=== PATIENT | female | born 1975 | race Caucasian/White ===

== ENCOUNTER → 2016-11-26 | Outpatient (CLI) | payer BC ==
[2011-01-19 10:22] VITALS: BP 107/70
[2016-11-26 15:42] LABS: BASOPHILS # (AUTO) 0.05 10*3/UL; BASOPHILS % (AUTO) 0.5 % (0-1); EOSINOPHILS % (AUTO) 1.8 % (0-8); HEMATOCRIT 41.8 % (37.0-47.0); HEMOGLOBIN 14.4 g/dL (12.0-16.0); IMM GRAN % (AUTO) 0.2 % (0-5); IMM GRAN# (AUTO) 0.02 10*3/UL; LYMPHOCYTES # (AUTO) 2.22 10*3/uL; LYMPHOCYTES % (AUTO) 21.4 % (10-50); MEAN CORPUSCULAR HEMOGLOBIN 28.7 PG (27-31); MEAN CORPUSCULAR HGB CONC 34.4 g/dL (33-37); MEAN PLATELET VOLUME 12.6 FL (7.4-12.2); MONOCYTES # (AUTO) 0.52 10*3/UL (0.3-0.8); NEUTROPHILS # (AUTO) 7.35 10*3/UL; NEUTROPHILS % (AUTO) 71.1 % (50-80); RDW COEFFICIENT OF VARIATION 13.9 % (11.5-14.5); RED BLOOD COUNT 5.02 10^6/uL (4.20-5.40); WHITE BLOOD COUNT 10.35 10^3/uL (4.8-10.8)
[2016-11-26 15:43] LABS: BILIRUBIN,URINE NEGATIVE (NEG); CLARITY,URINE CLEAR (CLEAR); GLUCOSE, URINE (UA) NEGATIVE (NEG); LEUKOCYTE ESTERASE ,URINE NEGATIVE (NEG); NITRATE,URINE NEGATIVE (NEG); OCCULT BLOOD,URINE NEGATIVE (NEG); PROTEIN,URINE NEGATIVE (NEG); UROBILINOGEN,URINE 0.2 EU/dL (0.2)
[2016-11-26 15:44] LABS: URINE SAMPLE TYPE VOIDED SPECIMEN; URINE SPECIFIC GRAVITY - MAN 1.032
[2016-11-26 15:45] LABS: PLATELET MORPHOLOGY COMMENT NORMAL MORPHOLOGY (NORM)
[2016-11-26 16:08] LABS: ASPARTATE AMINO TRANSFERASE 27 IU/L (8-39); BILIRUBIN,TOTAL 0.6 mg/dL (0.3-1.2); BLOOD UREA NITROGEN 13 mg/dL (7-22); BUN/CREATININE RATIO 18.57 (6-20); CALCIUM 10.2 mg/dL (8.7-10.7); CHLORIDE 107 meq/L (98-112); CREATININE 0.7 mg/dL (0.50-1.20); EST GLOMERULAR FILTRATION > 60 (>60 ml/min/1.73m(2)); GLUCOSE 96 mg/dL (78-110); POTASSIUM 4.3 meq/L (3.8-5.2); SODIUM 142 meq/L (135-145); TOTAL PROTEIN 7.7 g/dL (6.1-8.0)
== END ==
LOC: MOB LAB 14:37
PROVIDERS: ATTEND Nurse Practitioner Family
DX: R53.83 Other fatigue (principal); R50.9 Fever, unspecified; R10.84 Generalized abdominal pain; R51 Headache
CPT/HCPCS: 36415; 80053; 81003; 84443; 85025; 85652

== ENCOUNTER → 2016-12-03 | Outpatient (CLI) | payer BC ==
[2011-01-19 10:22] VITALS: BP 107/70
--- NOTE | 2016-12-03 13:55 | DI ---
MRI CERVICAL SPINE SCAN, 12/03/2016 8:50 AM: Clinical History: Cervical radiculopathy at C7. Previous Exam: None. Sequences: Sagittal T1and T2 weighted. Axial T2 PLUS and FE 3D DUAL. Coronal T1 scans through the upp er cervical spine. The vertebral bodies are of normal height and size. There is disc space narrowing at C5-6 and C6-7. A ll cervical disc spaces show desiccation change. The cervical cord and cerebellar tonsils are normal. The C2-3 through C4-5 disc spaces are normal. C5-6 has a left anterolateral bulging disc that is pro ducing an AP diameter of the canal that is at the lowest limits of normal. There is left neural carmen inal stenosis without right neural foraminal stenosis. C6-7 has a focal disc herniation that is locat ed just to the left of midline and is producing an AP diameter of the canal at the lowest limits of n ormal. There is no neural foraminal stenosis. The disc spaces from C7-T1 through T3-4 are normal. Readin. There is a left anterolateral bulging disc at C5-6 that is producing an AP diameter of the cervic al canal that is at the lowest limits of normal. There is left neural foraminal stenosis. There is no right neural foraminal stenosis. 2. There is a focal anterior disc herniation at C6-7 that is producing an AP diameter of the cervica l canal that is at the lowest limits of normal. There is no neural foraminal stenosis. 3. The C2-3 through C4-5 and the C7-T1 through T3-4 disc spaces are normal.
== END ==
LOC: MRI 08:50
PROVIDERS: ATTEND Nurse Practitioner Family
DX: M54.12 Radiculopathy, cervical region (principal); M47.22 Other spondylosis with radiculopathy, cervical region; M50.223 Other cervical disc displacement at C6-C7 level
CPT/HCPCS: 72141

== ENCOUNTER → 2016-12-06 | Outpatient (CLI) | payer BC ==
[2011-01-19 10:22] VITALS: BP 107/70
--- NOTE | 2016-12-06 11:54 | DI ---
CERVICAL SPINE SERIES, 12/06/2016 9:14 AM: Clinical History: C7 radiculopathy. Previous Exam: None at this facility. Upright AP and lateral and upright lateral flexion and extension views are submitted. The vertebral b odies are normal in height and size. Mild C5-6 disc space narrowing is present. In the neutral and fl exion views, there is 1 mm anterior subluxation of C2 on C3 and this is reduced with extension. No ot her areas of instability are noted. C1 articulates normally with C2 and the occiput. Prevertebral sof t tissue planes are normal. Readin. Mild C5-6 disc space narrowing. 2. There is anterior subluxation of C2 on C3 in the neutral and flexion views and this is reduced wi th extension indicating motion at this level.
== END ==
LOC: RAD 09:07
PROVIDERS: ATTEND Nurse Practitioner Family
DX: M54.12 Radiculopathy, cervical region (principal); M48.02 Spinal stenosis, cervical region; S13.130A Subluxation of C2/C3 cervical vertebrae, initial encounter
CPT/HCPCS: 72050

== ENCOUNTER → 2016-12-12 | Outpatient (CLI) | payer BC ==
[2011-01-19 10:22] VITALS: BP 107/70
--- NOTE | 2016-12-12 09:48 | DI ---
MRI BRAIN W/O CN,12/12/2016 8:58 AM: Clinical History: Episodic headache Previous Exam: None at this facility. Findings: Multiplanar MR images are obtained through the brain without contrast, and demonstrate a few scattere d areas of increased FLAIR signal within the right parietal subcortical white matter. There is no mass, hemorrhage or midline shift. The internal auditory canals are unremarkable. The major vascular flow voids are also unremarkable. The midline structures are within normal limits. The parasellar region is unremarkable. There is no abnormally restricted diffusion. The intraorbital structures are unremarkable. Visualized portions of the upper cervical spine are within normal limits. There are few cervical lymph nodes noted. Impression: Few scattered areas of increased FLAIR signal within the subcortical white matter. These are nonspeci fic, and likely represent small vessel ischemic changes.
== END ==
LOC: MRI 08:53
PROVIDERS: ATTEND Nurse Practitioner Family
DX: R51 Headache (principal)
CPT/HCPCS: 70551

== ENCOUNTER → 2016-12-13 | Outpatient (CLI) | payer BC ==
[2011-01-19 10:22] VITALS: BP 107/70
--- NOTE | 2016-12-13 10:05 | DI ---
MRI MRA HEAD W/O CN,12/13/2016 6:51 AM: Clinical History: Headaches. Previous Exam: January 01, 2017 Findings: MRA images are obtained through the brain following a 3-D [id number] protocol to evaluate the cir minal of [place]. There is normal basilar artery and vertebral arteries. The anterior communicating artery is within normal limits. There is no evidence of aneurysmal dilatio n. The distal internal carotid arteries are within normal limits as well. Vertebral arteries are normal. The middle cerebral arteries are also normal. Impression: Normal MRA of the [place] of [place].
== END ==
LOC: MRI 06:45
PROVIDERS: ATTEND Nurse Practitioner Family
DX: G44.89 Other headache syndrome (principal)
CPT/HCPCS: 70544

== ENCOUNTER → 2016-12-26 | Outpatient (CLI) | payer BC ==
[2011-01-19 10:22] VITALS: BP 107/70
[2016-12-26 14:53] LABS: ADD CSF CULTURE YES; APPEARANCE, CSF CLEAR (CLEAR); COLOR, CSF COLORLESS (COLOR)
[2016-12-26 14:54] LABS: GLUCOSE, CSF 52 mg/dL (50.0-80.0); TOTAL PROTEIN, CSF 36 mg/dL (15.0-45.0)
--- NOTE | 2016-12-26 21:05 | DI ---
XR SPINAL PUNCTURE LUMBAR DX,12/26/2016 12:40 PM: Clinical History: Headaches. Previous Exam: None at this facility. Procedure: Risks benefits and alternatives were explained to the patient and informed written consent obtained. The patient was placed prone on the fluoroscopy table, and the lumbar spine prepped and draped in usu al sterile fashion. 1% lidocaine was used for local anesthesia. Under fluoroscopic guidance, a 23-gauge spinal needle was advanced into the thecal sac. CSF pressure was then measured with the patient on her left side, and measured 11 cm of water. 4 vials of cerebrospinal fluid were taken and sent to the laboratory for evaluation. The patient tolerated the procedure well and was sent home in good condition. The patient was given instructions regarding the possibility of infection or spinal headaches. Findings: A single view demonstrates a needle at the L4 level. Impression: 1. Successful lumbar puncture. 2. Normal CSF pressure (11 cm H2O).
== END ==
LOC: RAD 12:34
PROVIDERS: ATTEND Physician Assistant
DX: R51 Headache (principal)
CPT/HCPCS: 62270; 82945; 84157; 87205; 89050

== ENCOUNTER → 2016-12-28 | Day surgery (SDC) | payer BC ==
[~2016-12-28] MED LIST: LIDOCAINE W/ SODIUM BICARB 0.5 ML SYR ONE; Lactated Ringers 1,000 ML PRIMARY IV ONE; MIDAZOLAM 5 MG/1 ML ONE; ONDANSETRON 4 MG/2 ML VIAL ONE; fentaNYL Inj 100 MCG/2 ML VIAL ONE
--- NOTE | 2016-12-28 11:29 | CRNA.PROCE ---
Central Neuraxis Block [facility] - - Safety Measures: Time Out Taken, Site Verified - - Type of Block: Epidural Reason for Block: Analgesia Moniters Used During Block: EKG, SPO2, NIBP Sedation Used - Enter Amount Used in Comment Field: Midazolam (mg): Yes (2), Fentanyl (mcg): Yes (50) Positioning: Sitting Skin Prep Used: ChloroPrep Draped: Yes Skin Infiltration - Enter Amount Used in Comment Field: 1% Xylocaine (mL): Yes ( skinwheal) Spinal Needle Used: 18 Hustead 80 mm Local Anesthetic - Enter Amount Used in Comment Field: Other Local Anesthetic: Yes (Blood Patch) - - Additional Details: Epidural Blood Patch Pt chart review and interview in preop. Pt states that she had a diagnostic spinal tap on 12/26/16. She began having headaches that evening and they have progressively gotten worse since. These headaches are only relieved by lying supine. R/B discussed with patient and she wishes to continue with an epidural blood patch. The previous procedure puncture was identified, I was able to palpate the next space caudal and used that space for the epidural blood patch.
[2016-12-28 11:39] VITALS: RESP 16
[2016-12-28 11:43] VITALS: TEMP 98.2
== END ==
LOC: SDSC 09:16
PROVIDERS: ATTEND Emergency Medicine
DX: T88.59XA Other complications of anesthesia, initial encounter (principal); G44.40 Drug-induced headache, not elsewhere classified, not intractable
CPT/HCPCS: 62273; J3010; J2250; J2405; J7120

== ENCOUNTER 2017-06-21 13:57 | Emergency (ER) | payer BC ==
[2017-06-21 14:09] VITALS: RESP 16; TEMP 97.6
[2017-06-21] MEDS ORDERED: predniSONE Tab 20 MG TAB PO ONE (14:10)
--- NOTE | 2017-06-21 15:22 | PDOC ---
Skin Rash/Insect/Abscess HPI - General Chief Complaint: Allergic Reaction/Anaphylaxis Stated Complaint: ALLERGIC RX Date Seen by Provider: 06/21/17 Time Seen by Provider: 13:56 Source: POSITIVE: Patient Exam Limitations: POSITIVE: No limitations Nurse's Notes Reviewed & Considered: Yes - History of Present Illness Initial Comments: The patient is a 42-year-old female. 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 Patient states that she has a history of allergic reactions to bee stings. Patient had some liquid Benadryl and she took several "swigs" from the Benadryl bottle. The bottle was full and the patient probably took about 60 mL of the medication, which contains 12.5 mg of diphenhydramine per 5 mL. Patient did not have any wheezing. No rash. No pruritus. No sensation of closing of the throat, or any other symptoms of a systemic allergic reaction. 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) Severity: Mild Quality: REPORTS: Other (Only mild localized discomfort at site of sting) Identified Causes: REPORTS: Yes (Be or wasp) When Exposed: REPORTS: Just Prior to Sx Onset Where Exposed: REPORTS: Unknown ([facility]) Suspected Etiology: REPORTS: Insect Bite Similar Symptoms Previously: Yes (patient states she has had allergic reactions to bee stings in the past) Recent Care Received: REPORTS: Denies Any Prior Injuries Related to Current Complaint?: No - Patient Home Medications Home Medications: Home Medications diphenhydrAMINE Elixir [Benadryl Elixir] 12.5 mg PO PRN 06/21/17 - Patient Allergies Allergies/Adverse Reactions: Allergies Allergy/AdvReac Type Severity Reaction Status Date / Time venom-honey bee Allergy Intermediate HIVES Verified 06/21/17 14:01 epinephrine Allergy anaphylaxsi Verified 06/21/17 14:01 s Sulfa (Sulfonamide Allergy shortness Verified 06/21/17 14:01 Antibiotics) of breath Past Medical History - heen HEENT History: Denies History Cardiovascular History: Denies History Respiratory History: Denies History Gastrointestinal History: Denies History Genitourinary History: Denies History Endocrine History: Denies History Musculoskeletal History: Denies History Prosthesis or Implant: No Neurological History: Denies History Blood Disorders: Denies History Psychiatric History: Denies History History of Sexually Transmitted Diseases: No Female Reproductive History: Denies History LMP: 06/20 Obstetrical History: Denies History Cancer History: Denies History In Past Year Been Physically Harmed or Verbally Threatened: No History of MDRO: No History of Other Communicable Diseases: No Tobacco Use: Former Smoker Alcohol Use: Occasionally Substance Use Type: None Previous Surgical History: No Past Medical History Reviewed: Reviewed - No Changes ROS - Limitations ROS Limitations: No Limitations Constitution: REPORTS: Denies Symptoms Cardiovascular: REPORTS: Denies Cardiac Symptoms Respiratory: REPORTS: Denies Resp Symptoms Neurological: REPORTS: Denies Neuro Symptoms Gastrointestinal: REPORTS: Denies GI Symptoms Endocrine: REPORTS: Denies Symptoms Musculoskeletal: REPORTS: Denies MS Symptoms Genitourinary: REPORTS: Denies Symptoms Eyes: REPORTS: Denies Symptoms ENT: REPORTS: Denies Symptoms Skin: REPORTS: Other (Mild discomfort and mild local erythema at site of insect sting over the volar surface of the proximal portion of the left forearm) Lympathic: REPORTS: Denies Lympathic Symptoms Immunologic: POSITIVE: Denies Symptoms Psychiatric: POSITIVE: Denies Psych Symptoms Skin Rash/Insect/Abscess Exam - General Appearance General Appearance: REPORTS: Alert, Cooperative, No Acute Distress, No Evidence of Trauma - Skin Skin: REPORTS: Warm, Dry, Normal Color, Erythema (Mild erythema at site of insect sting left forearm as above; see diagram) Skin Location: REPORTS: Extremities (Proximal aspect of the volar surface of left forearm as above) Skin Character: REPORTS: Asymmetric Skin Symptoms: REPORTS: Warmth. DENIES: Tenderness, Swelling, Lymphangitis, Induration, Thickening, Scaling, Well Defined Border, Weeping, Inflammation, Crusting, Rough Texture, Sand Paper - Like, Skin-Line Distribution, Other - Extremities Extremity: Non-Tender: (All Extremities), Normal ROM: (All Extremities), Normal Inspection: (All Extremities) - HEENT HEENT: POSITIVE: Head Inspection Nml, Eyes Inspection Nml, Ears Inspection Nml, Nose Inspection Nml, Oral/Dental Inspect. Nml, Pharynx Inspect. 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 Patient did not manifest any allergic symptoms whatsoever. Patient was also observed for the development of any symptoms of diphenhydramine overdose, since the patient self medicated her with more than the recommended dose of diphenhydramine. Patient remained asymptomatic throughout her stay in the emergency room; the erythema around her insect bite was resolving well. Status: POSITIVE: Unchanged, Re-Examined - Consult Counseled: POSITIVE: Patient, RE: DX, RE: Need for F/U Patient Care Time - Estimated PCT Patient Care Time (In Minutes): 35 Vital Signs - Recent Vital Signs Vital Signs: Vital Signs (Last 8 hours) Temp Pulse Resp BP Pulse Ox 06/21/17 14:02 97.6 F 91 16 128/76 93 - VS Reviewed Vital Signs Reviewed: Yes Discharge Clinical Impression: Insect bite, Accidental diphenhydramine overdose Discharge Disposition: Discharged to Home Condition: Fair Patient Instructions Given at Discharge: Diphenhydramine (By mouth), Insect Bite or Sting (ED) Additional Instructions: I do not believe you're having an allergic reaction to your be or wasp sting. He do have some local redness at the site of the sting, which is not unusual. After you sustained your sting, you took more than the recommended dose of Benadryl. Normally, you should take 2-4 teaspoons of the liquid Benadryl. I observed him in the emergency room to make sure that you're not going to manifest any late allergic reactions or evidence of Benadryl toxicity. You have not done this, and I believe you're going to be fine. Cool compresses to the sting site. Rest in a cool environment today. Return anytime if any symptoms whatsoever develop, or as necessary. Follow Up With: CURTIS HERNANDEZ [Primary Care Provider] - (Instructions as above. Return anytime if condition worsens. Follow-up with your primary care provider.)
== END 2017-06-21 15:30 | disposition home or self-care (01) ==
LOC: ER 13:57
DX: T45.0X1A Poisoning by antiallergic and antiemetic drugs, accidental (unintentional), initial encounter (principal); S50.862A Insect bite (nonvenomous) of left forearm, initial encounter; W57.XXXA Bitten or stung by nonvenomous insect and other nonvenomous arthropods, initial encounter
CPT/HCPCS: 99282 ×2; J7512